=== PATIENT | male | born 1975 | race Caucasian/White ===

== ENCOUNTER → 2020-11-21 | Outpatient (CLI) | payer OTHER ==
[~2020-11-21] MED LIST: ISOVUE-370 76% 100ML VIAL As Ordered ONE
--- NOTE | 2020-11-22 08:20 | REP ---
INDICATION: MICROSCOPIC HEMATURIA. COMPARISON: None TECHNIQUE: Axial precontrast, contrast-enhanced and delayed images from the lung bases to the pubic symphysis using 100 cc Isovue 370 intravenous contrast material. Coronal and sagittal reformations obtained. This CT examination was performed using the following dose reduction techniques: Automated exposure control, adjustment of mA and/or kv according to the patient's size, and the use of iterative reconstruction technique. FINDINGS: Kidneys demonstrate very mild medullary nephrocalcinosis along with 2 mm nonobstructing left renal calculus. No perinephric stranding, hydroureteronephrosis, or obstructing ureteral calculi identified. Liver, spleen, pancreas, gallbladder, bilateral adrenal glands are normal. The enteric system including stomach, small, and large bowel appears normal. No evidence for obstruction or acute inflammatory process. Normal terminal ileum and appendix are identified in the right lower quadrant. Pelvis demonstrates normal bladder and age-appropriate prostate/seminal vesicles. No ascites. No free air. No intraperitoneal or retroperitoneal adenopathy. Abdominal aorta and vasculature appear normal. Musculoskeletal structures are intact and without acute osseous abnormality. IMPRESSION: 1. No acute abdominopelvic pathology appreciated. 2. Subtle medullary nephrocalcinosis and 2 mm nonobstructing left renal calculus noted. <Electronically signed by Garth Ramesh > 11/22/20 2029
== END ==
LOC: M RAD 17:15
PROVIDERS: ATTEND Family Medicine
DX: N20.0 Calculus of kidney (principal); R31.29 Other microscopic hematuria
CPT/HCPCS: 74178; Q9967